=== PATIENT | male | born 1960 | race Caucasian/White ===

== ENCOUNTER → 2017-08-05 | Outpatient (CLI) | payer BC ==
[~2017-08-05] MED LIST: HYDSUL200 PO; LEFL20 PO; METTREX2.5 PO
== END | disposition home or self-care (01) ==
LOC: LAB SHORT 07:48 → PLD 07:48
DX: D22.5 Melanocytic nevi of trunk (principal)
CPT/HCPCS: 88305

== ENCOUNTER 2022-01-22 11:24 | Day surgery (SDC) | payer BC ==
[~2022-01-22] VITALS: Ht 175.3 cm; Wt 95.4 kg
[~2022-01-22 11:24] MED LIST changes: +ENBREL25 MG SC; +FOLI1 PO; +SULF500 PO
--- NOTE | 2022-01-22 13:16 | NUR ---
Ambulatory in Day Surgery. History, Chart, Medications and Allergies reviewed before start of procedure. Pre-Op teaching done. Pt verbalizes understanding. Patient confirms NPO status and agrees with scheduled surgery.
--- NOTE | 2022-01-22 18:40 | NUR ---
Pts. spouse called this construction electrician into the room. Pt. welcomes my visit. Pt. had just had knee replacement surgery and was unsettled by the potential lenth of recovery. Listened empathetically and developed rapport. Pt. displayed evidence of hope and trust and engagement in his recovery. Prayed with Pt. Pt. and spouse verbalized gratitude for the spiritual care visit.
--- NOTE | 2022-01-22 18:49 | NUR ---
SHIFT SUMMARY NEW ADMIT TO UNIT POST OP DAY [address] ANDERSON. ALERT AND ORIENTED ON ARRIVAL. SPINAL AND LOCAL. AT THIS TIME ABLE TO MOVE L ANKLE AND TOES, REPORTS SENSATION TO L FOOT DULL PRESSURE. DENIES PAIN. TOLERATING REGULAR DIET AND LIQUIDS. LR RUNNING AT 70 ML/HR. POST OP VSS. SPOUSE ATTENTIVE IN ROOM. LEFT KNEE WITH AQUACEL, WAQAR WRAP, COMPRESSION STOCKING, PAS, AND POLAR PACK. HAS NOT BEEN OUT OF BED AND NO VOID AT THIS TIME.
[2022-01-23 05:16] LABS: BASOPHILS ABSOLUTE AUTO 0.01 K/mm3 (0.00-0.23); BASOPHILS PERCENT AUTO 0 % (0-2); EOSINOPHILS PERCENT AUTO 0 % (0-6); Hematocrit 36.9 % (37.0-53.0); Hemoglobin 12.7 g/dL (13.5-17.5); IMMATURE GRAN ABSOLUTE AUTO 0.05 K/mm3 (0.00-0.10); IMMATURE GRAN PERCENT AUTO 0 % (0-1); LYMPHOCYTES ABSOLUTE AUTO 0.77 K/mm3 (0.84-5.20); LYMPHOCYTES PERCENT AUTO 6 % (21-46); MONOCYTES ABSOLUTE AUTO 1.22 K/mm3 (0.16-1.47); MONOCYTES PERCENT AUTO 9 % (4-13); Mean Corpuscular HGB 30.5 pg (26.0-34.0); Mean Corpuscular HGB Conc 34.4 g/dL (31.5-36.5); Mean Corpuscular Volume 89 fL (80-100); NEUTROPHILS ABSOLUTE AUTO 11.81 K/mm3 (1.96-9.15); NEUTROPHILS PERCENT AUTO 85 % (41-73); Platelet Count 271 K/mm3 (150-400); RDW Coefficient Variation 14.2 % (11.7-14.2); RDW Standard Deviation 46.2 fL (35.1-46.3); Red Blood Cell Count 4.17 M/mm3 (4.30-5.90); White Blood Cell Count 13.86 K/mm3 (4.00-11.30)
[2022-01-23 05:33] LABS: Bun/Creatinine Ratio 21.5 (12.0-20.0); Calcium, Blood 8.6 mg/dL (8.5-10.1); Creatinine, Blood 1.07 mg/dL (0.60-1.20); Magnesium, Blood 2.3 mg/dL (1.6-2.4); Potassium, Blood 4.4 mmol/L (3.5-5.5)
--- NOTE | 2022-01-23 05:41 | NUR ---
SUMMARY NO NEW ISSUES NOTED. PT PAIN MANAGED WELL. PT N/T RESOLVED AND PT HAS BEEN ABLE TO VOID. PT DRESSING CDI AND POLAR PACK IN PLACE. PT HAS BEEN AMBULATORY AND TOLERATING VERY WELL. PT CURRENTLY RESTING IN NO DISTRESS. CALL LIGHT IN REACH.
--- NOTE | 2022-01-23 10:58 | NUR ---
Pt. is recovering from knee replacement and awaiting D/C. Pt. is pleasant, and rapport is quickly extablished. Pt. does not seem to be experiencing discomfort. Pt. is a man of ilda and issues of ilda and belief are discussed. Pt. 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 Pt. verbalized gratitude for the spiritual care visit.
--- NOTE | 2022-01-23 11:00 | NUR ---
DISCHARGE SUMMARY PT A&OX4, VSS/RA, BOBO PO, VOIDING WELL, PAIN MANAGED WELL, AMB SBA FWW GB, IV DC'D. DC INS PROVIDED. PT REP UNDERSTANDING THOSE INSTRUCTIONS. 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
== END 2022-01-23 11:14 | disposition home or self-care (01) ==
LOC: ORSCMMR 11:24 → ORD 14:15 → ORSCMMR 14:15 → SURS 17:14 → ORSCMMR 01-23 11:14
PROVIDERS: Orthopaedic Surgery
PROC: 0SRD0J9 Replacement of Left Knee Joint with Synthetic Substitute, Cemented, Open Approach (ICD-10-PCS; principal; 2022-01-22 14:15)
DX: M17.12 Unilateral primary osteoarthritis, left knee (principal); Z79.899 Other long term (current) drug therapy
CPT/HCPCS: 36415; 73560-LT; 80048; 83735; 85025; 97110; 97116; 97162; A9270; C1713; C1776; J0171; J0690; J0735; J1100; J1885; J2250; J2405; J2704; J2795; J3010; J3370; J7120

== ENCOUNTER → 2022-12-24 | Outpatient (CLI) | payer BC | END | disposition home or self-care (01) | LOC: LAB SHORT 12:10 → LAB 12:10 | DX: D48.5 Neoplasm of uncertain behavior of skin (principal) | CPT/HCPCS: 88305 ==